=== PATIENT | male | born 1995 | race Two or more races ===

== ENCOUNTER 2023-12-01 21:54 | Emergency (ER) | payer SELFPAY ==
[~2023-12-01] VITALS: Ht 188 cm; Wt 100.0 kg
[2023-12-01 22:50] VITALS: BP 138/89; PULSE 110; RESP 16; TEMP 98.2; O2SAT 98
== END 2023-12-01 23:02 | disposition left against medical advice (07) ==
LOC: EDBD 21:54 → ER 21:54
DX: T50.991A Poisoning by other drugs, medicaments and biological substances, accidental (unintentional), initial encounter (principal); Y92.89 Other specified places as the place of occurrence of the external cause